=== PATIENT | female | born 1960 | race Caucasian/White ===

== ENCOUNTER 2020-08-06 10:21 | Emergency (ER) | payer SELFPAY ==
[~2020-08-06] VITALS: Ht 165.1 cm; Wt 55.0 kg
[2020-08-06] MEDS ORDERED: SODIUM CHLORIDE 0.9% 1,000ML IVBOLUS ONE (11:00)
[2020-08-06] MEDS ORDERED: VANCOMYCIN PER PHARMACY MC ONE (11:00)
[2020-08-06] MEDS ORDERED: ONDANSETRON 2MG/ML, 2ML IVPush ONE (11:00)
--- NOTE | 2020-08-06 11:07 | NUR ---
DR RIVAS AT BS DISCUSSING POC W/ PT. PT UNSURE IF SHE WANTS CT; REFUSING PAIN MED, AT THIS TIME.
--- NOTE | 2020-08-06 11:11 | NUR ---
AMBULATORY TO & FROM [facility] PHONE W/OUT INCIDENT. ABLE TO SPEAK IN COMPLETE SENTENCES, RESP EVEN & UNLABORED. STATES SHE HAD NECK PLASTIC SURGERY LAST THURSDAY. SUTURES PRESENT UNDER CHIN. BRUISING TO ORBITAL AREA BILAT. PT FIRMLY STATES "MY EYES ARE FINE". LAB AT BS.
--- NOTE | 2020-08-06 11:27 | NUR ---
MORPHINE AND ZOFRAN OFFERED; PT CHOOSING TO HOLD OFF FOR NOW.
[2020-08-06 11:30] LABS: BASOPHILS % (AUTO) 0 % (0-1); EOSINOPHILS % (AUTO) 1 % (1-7); LYMPHOCYTES % (AUTO) 8 % (22-44); MEAN CORPUSCULAR HEMOGLOBIN 29.1 pg (27.0-34.8); MEAN CORPUSCULAR HGB CONC 33.6 g/dL (32.4-35.8); MEAN PLATELET VOLUME 8.1 fL (7.4-10.4); MONOCYTES % (AUTO) 8 % (2-9); NEUTROPHILS % (AUTO) 84 % (42-75); PLATELET COUNT 154 x10^3/uL (130-400); RED BLOOD COUNT 4.59 x10^6/uL (3.82-5.3); RED CELL DISTRIBUTION WIDTH 13.9 % (9.6-15.2)
[2020-08-06] MEDS ORDERED: VANCOMYCIN 1,200 MG in SODIUM CHLORIDE 0.9% 250 ML IV ONE (11:30)
[2020-08-06 11:42] LABS: ALBUMIN 3.3 g/dL (3.4-5.0); CHLORIDE 97 mmol/L (98-107); CREATININE 0.86 mg/dL (0.55-1.02)
--- NOTE | 2020-08-06 11:42 | NUR ---
CORONA TOURE, INFUSING AT 166.6ML/HR VIA PUMP. NS INFUSING. IV SITE PATENT. BEAR WARMER GIVEN TO PT. PT AWAITING CT.
[2020-08-06 11:43] LABS: ANION GAP 8 mmol/L (5-15); CALCIUM 8.6 mg/dL (8.5-10.1)
[2020-08-06] MEDS ORDERED: ANTIBIOTIC (11:46)
[2020-08-06] MEDS ORDERED: PROGESTERONE (11:46)
[2020-08-06] MEDS ORDERED: ESTROGEN (11:46)
[2020-08-06 12:06] LABS: MD SCAN
--- NOTE | 2020-08-06 12:37 | NUR ---
CT DELAY; ONE ROOM HAS CODE NEURO PATIENT- OTHER RM COVID PATIENT
--- NOTE | 2020-08-06 13:07 | NUR ---
RETURNED FROM CT. PER TECH, CT NOT COMPLETED BECAUSE PT "HAD TO GO TO THE BATHROOM, AGAIN". PROVIDER WILL BE NOTIFIED.
--- NOTE | 2020-08-06 13:21 | NUR ---
PT ON CT TABLE AT 1255, THEN HAD TO GO TO BATHROOM FIRST, CT NOT DONE
[2020-08-06] MEDS ORDERED: POTASSIUM CHLORIDE 20 MEQ TAB.ER.PRT PO ONE (13:30)
--- NOTE | 2020-08-06 13:48 | NUR ---
LYING ON GURNEY. IV INFUSIONS NOT ATTACHED TO PT. NS AND VANCO RESTARTED. IV SITE PATENT. PT STATES "MY STOMACH IS KILLING ME". REFUSED ZOFRAN AND PEPCID OFFER; REQUESTING CRACKERS OR JELLO; WILL CONSULT PROVIDER.
--- NOTE | 2020-08-06 13:52 | NUR ---
MANAGER OF CREATIVE SERVICES HERE FOR PT.
--- NOTE | 2020-08-06 14:14 | NUR ---
RETURNED FROM CT. NS AND CORONA INFUSING.
[2020-08-06] MEDS ORDERED: OMNIPAQUE 350 MG/ML, 100ML BOTTLE ONE (14:20)
--- NOTE | 2020-08-06 15:00 | NUR ---
PT AMBULATORY TO [facility] W/ TOOTHBRUSH IN HAND.
--- NOTE | 2020-08-06 15:08 | NUR ---
Report from brandon rn 1l ns complete as well as vancomycin infusion Throughput rn working on transfer (est 30min)
[2020-08-06] MEDS ORDERED: MORPHINE SULFATE 4 MG/ML, 1ML ONE ×2 (15:17→16:30)
[2020-08-06] MEDS ORDERED: ONDANSETRON 2MG/ML, 2ML ONE (15:17)
[2020-08-06] MEDS: MORPHINE SULFATE 4 MG/ML, 1ML IVPush PRN ×2 (15:19→16:32)
[2020-08-06 15:24] VITALS: BP 103/63
--- NOTE | 2020-08-06 15:26 | NUR ---
PT RESTING ON GURNEY, AWAITING TRANSPORT TO [facility]. SPOUSE IN ROOM.
--- NOTE | 2020-08-06 15:35 | NUR ---
REPORT CALLED TO CARRIE LOVE AT [facility].
--- NOTE | 2020-08-06 15:35 | NUR ---
PT AWAITING [facility] FOR TRANSPORT TO [facility].
[2020-08-06] MEDS ORDERED: POTASSIUM CHLORIDE 20 MEQ TAB.ER.PRT ONE (15:39)
== END 2020-08-06 22:56 | disposition other institution (70) ==
LOC: ED 12:00
DX: L03.221 Cellulitis of neck (principal)
CPT/HCPCS: 36415; 70491; 80048; 82040; 83605; 84145; 85025; 87040; 96365; 96366; 96375; 96376; 99285; J2270; J2405; J3370; J7030; J7050; Q9967